=== PATIENT | female | born 1980 | race Caucasian/White ===

== ENCOUNTER 2019-03-30 10:28 | Emergency (ER) | payer OTHER ==
[2019-03-30 10:28] VITALS: BMI 43.9
[2019-03-30 10:40] VITALS: BP 131/90; PULSE 65; RESP 18; TEMP 98.6; O2SAT 99
--- NOTE | 2019-03-30 11:05 | C.PDOC ---
History Of Present Illness 38 y/o female pt presents to the ER c/o throat pain and itchiness that started yesterday. Associated sx includes cough with yellow sputum. Patient states she does not feel chest congestion but feels dripping to the back of her throat that is making her cough. She also complains of left ear pain/pressure, and headache Pt reports sx became worse this morning which prompted her to visit the ER. Pt notes she has seasonal allergies but does not take any medication for it. Pt denies chest pain, SOB body aches, fever, chills, nausea, vomiting, and diarrhea. Time Seen by Provider: 03/30/19 10:43 Chief Complaint (Nursing): ENT Problem History Per: Patient History/Exam Limitations: None Onset/Duration Of Symptoms: Days (x1) Current Symptoms Are (Timing): Still Present Past Medical History Reviewed: Historical Data, Nursing Documentation, Vital Signs Vital Signs: Last Vital Signs Temp 98.6 F 03/30/19 10:39 Pulse 65 03/30/19 10:39 Resp 18 03/30/19 10:39 BP 131/90 03/30/19 10:39 Pulse Ox 99 03/30/19 10:39 Primary Care Provider: Kaitlynn Yu - Medical History PMH: No Chronic Diseases - [facility] Procedures D & C NEC (01/27/15) HYSTEROSCOPY (01/27/15) Family History: States: Unknown Family Hx - Social History Hx Tobacco Use: No Hx Alcohol Use: No Hx Substance Use: No - Immunization History Hx Tetanus Toxoid Vaccination: No Hx Influenza Vaccination: Yes Hx Pneumococcal Vaccination: No Review Of Systems Except As Marked, All Systems Reviewed And Found Negative. Constitutional: Positive for: Other (seasonal allergies ). Negative for: Fever, Chills ENT: Positive for: Ear Pain (left), Throat Pain Cardiovascular: Positive for: Other (chest congestion ) Respiratory: Positive for: Cough, Sputum (yellow) Gastrointestinal: Negative for: Nausea, Vomiting, Diarrhea Musculoskeletal: Negative for: Other (body aches ) Neurological: Positive for: Headache Physical Exam - Physical Exam Appears: Non-toxic, No Acute Distress Skin: Warm, Dry, No Rash Head: Atraumatic, Normacephalic Eye(s): bilateral: Normal Inspection, PERRL, EOMI Ear(s): Left: Other (cerumen present, but TM visible ), Bilateral: Normal Nose: Normal, No Discharge Oral Mucosa: Moist Tongue: Normal Appearing, No Swelling Lips: Normal Appearing Throat: Erythema, No Exudate, No Drooling, Other (uvula midline, post nasal drip noted to posterior pharynx) Neck: Normal, Normal ROM, Supple Lymphatic: No Adenopathy Chest: Symmetrical Cardiovascular: Rhythm Regular Respiratory: Normal Breath Sounds, No Rales, No Rhonchi, No Wheezing Gastrointestinal/Abdominal: Normal Exam, Soft, No Tenderness Extremity: Normal ROM Neurological/Psych: Oriented x3, Normal Speech, Normal Cognition ED Course And Treatment O2 Sat by Pulse Oximetry: 99 (RA) Pulse Ox Interpretation: Normal Medical Decision Making Medical Decision Making: Plans: -- rapid strep 03/30/19 1140 Patient reevaluated. Strep negative. Patient complains of ear pressure, post nasal drip, and sore/itchy throat. Advised symptoms may be allergic in nature fish she states she has history of seasonal allergies. Will provide patient with rx for flonase and anthistamine. Advised to take tylenol and or advil for any pain. If not better in a few days, I advised patient to follow-up with her PMD. Disposition Counseled Patient/Family Regarding: Studies Performed, Diagnosis, Rx Given - Disposition Referrals: Kaitlynn Yu MD [Medical Doctor] - Disposition: HOME/ ROUTINE Disposition Time: 11:45 Condition: GOOD Additional Instructions: Follow-up with your PMD. Take medications as prescribed. Return if symptoms worsen or persist or see your doctor. Prescriptions: Fluticasone Nasal [Flonase] 1 spr NS BID #1 spr Ibuprofen [Motrin Tab] 800 mg PO TID #20 tab Loratadine 10 mg PO DAILY #10 tablet Instructions: Sore Throat, Adult (DC) Forms: Listar (Indian) Print Language: NEPALI - Clinical Impression Clinical Impression: Sore throat - PA / EXTERMINATOR TERMITE / Resident Statement / has reviewed & agrees with the documentation as recorded. - Scribe Statement The provider has reviewed the documentation as recorded by the Eloina Pace Do All medical record entries made by the Scribe were at my direction and personally dictated by me. I have reviewed the chart and agree that the record accurately reflects my personal performance of the history, physical exam, medical decision making, and the department course for this patient. I have also personally directed, reviewed, and agree with the discharge instructions and disposition.
== END 2019-03-30 11:51 | disposition home or self-care (01) ==
LOC: C.ER 10:28
DX: J02.9 Acute pharyngitis, unspecified (principal)